=== PATIENT | male | born 1970 | race Hispanic/Latino ===

== ENCOUNTER 2016-03-11 14:29 | Emergency (ER) | payer OTHER ==
--- NOTE | 2016-03-11 17:19 | Emergency Department Report ---
Chief Complaint: Pain General Stated Complaint: BONE PAIN Time Seen by Provider: 03/11/16 17:09 - HPI History of Present Illness: 45-year-old male presents today stating he needs radiation for his bone cancer. Patient states he was diagnosed with lung cancer 5 years ago and his last radiation was 3 years ago. Patient states he follows up with Dr. Austin Roldan who works at this hospital. Denies visual or auditory hallucinations. Denies suicidal or homicidal ideations. Per caregiver patient is resident of [facility] and is to be sent back there after discharge. Patient is delusional and does not have history of bone cancer. - ROS Review of Systems: Per HPI - Exam Vital Signs: Vital Signs 03/11/16 14:50 Temperature 98.5 F Pulse Rate 117 H Respiratory 20 Rate Blood Pressure 110/72 O2 Sat by Pulse 98 Oximetry Physical Exam: General: A 44-year-old male in no acute distress. Well-developed, well- nourished. CV: Regular rate and rhythm. Lungs: Clear to auscultation bilaterally. MSE screening note: Focused history and physical exam performed. Due to findings the following was ordered: ED Disposition for MSE Condition: Stable
[2016-03-11 17:46] LABS: Basophils % (Auto) 0.2 % (0.0-1.8); Eosinophils % (Auto) 0.4 % (0.0-4.3); Hematocrit 42.6 % (35.5-45.6); Hemoglobin 13.9 gm/dl (11.8-15.2); Mean Corpuscular HGB Conc 33 % (32-34); Mean Corpuscular Hemoglobin 27 pg (28-32); Mean Corpuscular Volume 83 fl (84-94); Platelet Count 138 K/mm3 (140-440); Red Blood Count 5.13 M/mm3 (3.65-5.03); Red Cell Distribution Width 13.6 % (13.2-15.2); White Blood Count 4.9 K/mm3 (4.5-11.0)
[2016-03-11 18:03] LABS: Anion Gap 19 mmol/L; Blood Urea Nitrogen 12 mg/dL (9-20); Calcium 9.1 mg/dL (8.4-10.2); Carbon Dioxide 24 mmol/L (22-30); Chloride 101.5 mmol/L (98-107); Glucose 120 mg/dL (75-100); Potassium 4.2 mmol/L (3.6-5.0); Sodium 140 mmol/L (137-145)
[2016-03-12] MEDS ORDERED: TORADOL IM ONE (03:08)
[2016-03-12 03:09] VITALS: BP 103/63
--- NOTE | 2016-03-12 03:26 | Emergency Department Report ---
HPI - General Chief Complaint: Pain General Time Seen by Provider: 03/11/16 17:09 - HPI HPI: This is a 45-year-old male who presents to the emergency department with the complaint that he has right-sided body pain that has been going on for years but worsened since this afternoon. He says he has a history of radiation therapy and that he is here because he would like more radiation done. He says he follows up with a physician, Dr. Austin Roldan, for these symptoms. Patient presents from a [facility]. He has a history of schizophrenia. Patient says he is able to ambulate but sometimes does so with pain. I spoke with Seth Vasquez, a caregiver from the shelter, who says that this patient has a history of making these complaints and calling 911. Caregiver says that he does so in the hopes that he will be able to elope and travel to [facility]. There is no history of any type of bone cancer, radiation therapy. The patient was able to get to a phone, which she is usually not allowed to do, and called EMS to bring him to the hospital. ED Past Medical Hx - Past Medical History Hx Psychiatric Treatment: Yes Additional medical history: History of paranoid schizophrenia - Surgical History Additional Surgical History: unknown - Social History Smoking Status: Never Smoker Substance Use Type: None - Medications Home Medications: Home Medications Medication Instructions Recorded Confirmed Last Taken Type No Known Home Medications [No 03/26/13 04/18/13 Unknown History Reported Home Medications] ED Review of Systems ROS: Stated complaint: BONE PAIN Other details as noted in HPI Comment: All other systems reviewed and negative Constitutional: denies: chills, fever Eyes: denies: eye pain, eye discharge, vision change ENT: denies: ear pain, throat pain Respiratory: denies: cough, shortness of breath, wheezing Cardiovascular: denies: chest pain, palpitations Gastrointestinal: denies: abdominal pain, nausea, diarrhea Genitourinary: denies: urgency, dysuria Musculoskeletal: arthralgia, myalgia Skin: denies: rash, lesions Neurological: denies: headache, weakness, paresthesias Physical Exam - Physical Exam Vital Signs: Vital Signs 03/11/16 03/12/16 03/12/16 14:50 01:33 03:08 Temperature 98.5 F 98.4 F Pulse Rate 117 H 102 H 92 H Respiratory 20 18 18 Rate Blood Pressure 110/72 115/77 Blood Pressure 103/63 [Left] O2 Sat by Pulse 98 95 96 Oximetry Physical Exam: GENERAL: The patient is well-developed well-nourished. HEENT: Normocephalic. Atraumatic. Extraocular motions are intact. Patient has moist mucous membranes. Pupils equal reactive to light bilaterally. NECK: Supple. Trachea is midline. CHEST/LUNGS: Clear to auscultation. There is no respiratory distress noted. HEART/CARDIOVASCULAR: Regular. There is no tachycardia. There is no gallop rub or murmur. ABDOMEN: Abdomen is soft, nontender. Patient has normal bowel sounds. There is no abdominal distention. SKIN: Warm and dry NEURO: The patient is awake, alert, and oriented. The patient is cooperative. The patient has no focal neurologic deficits. The patient has normal speech. MUSCULOSKELETAL: There is no tenderness or deformity. There is no limitation range of motion. There is no evidence of acute injury. Muscle strength 5 out of 5 upper and lower Chev[place] bilaterally. ED Course Vital Signs 03/11/16 03/12/16 03/12/16 14:50 01:33 03:08 Temperature 98.5 F 98.4 F Pulse Rate 117 H 102 H 92 H Respiratory 20 18 18 Rate Blood Pressure 110/72 115/77 Blood Pressure 103/63 [Left] O2 Sat by Pulse 98 95 96 Oximetry ED Medical Decision Making - Lab Data Result diagrams: 03/11/16 17:26 03/11/16 17:26 - Medical Decision Making This is a 45-year-old male with history of schizophrenia and some delusions who claims that he needs more radiation therapy for bone pain from possible bone cancer in the past. Patient does not appear to have any discomfort with palpation of his entire right side of his body. Otherwise he has normal sounding heart and lungs to auscultation. Vital signs stable including being afebrile. He had some mild tachycardia when he first got here many hours ago but it has greatly improved without intervention. Patient was given a shot of Toradol for his complaint of discomfort. I spoke with the caregiver who says that there is a history of schizophrenia and delusions and he does not have any bone issues or radiation therapy. Patient will be discharged back to the care of the shelter and encouraged to follow-up with a primary care physician. He will be returned to the emergency department with any acute distress. Critical Care Time: No Critical care attestation.: If time is entered above; I have spent that time in minutes in the direct care of this critically ill patient, excluding procedure time. ED Disposition Clinical Impression: Body aches, Musculoskeletal pain Disposition: DISCHARGED TO HOME OR SELFCARE Is pt being admited?: No Does the pt Need Aspirin: No Condition: Good Instructions: Musculoskeletal Pain (ED) Additional Instructions: Please follow-up with your primary care doctor in the next few days. Return to the emergency department with any acute distress. Referrals: PRIMARY CAREMD [Primary Care Provider] - 3-5 Days Time of Disposition: 03:27
== END 2016-03-12 04:30 | disposition home or self-care (01) ==
LOC: ED 14:29
DX: M79.1 Myalgia (principal); F20.9 Schizophrenia, unspecified
CPT/HCPCS: 36415; 80048; 85025; 99283; G0480; J1885; 80320

== ENCOUNTER 2016-06-12 13:59 | Emergency (ER) | payer OTHER ==
[2016-06-12 15:03] VITALS: BP 129/82
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
[2016-06-12] MEDS ORDERED: MOTRIN PO ONE (17:19)
--- NOTE | 2016-06-12 17:48 | Emergency Department Report ---
Entered by KENNY MAYERS, acting as scribe for ASHA COLMENARES PA. ED General Adult HPI - General Chief complaint: Pain General Stated complaint: BODY PAIN Time Seen by Provider: 06/12/16 15:10 Source: patient Mode of arrival: Ambulatory Limitations: No Limitations - History of Present Illness Initial comments: 45 year old male with a PMHx of schizophrenia presents to the ED c/o myalgias that began 5 weeks ago. Rates pain a 5/10 in severity and describes the pain as aching in quality. Associated symptoms include bilateral ankle pain, right leg pain, and right arm pain, but he denies numbness, tingling, chest pain, abdominal pain, fever, chills, and SOB. Denies any injury or previous Hx of similar symptoms. Patient requests an X-ray of his entire body. NKDA. GARCIA Complaint: Myalgias Onset/Timin -: week(s) Location: upper extremity (right arm), lower extremity (bilateral ankles and right leg) Radiation: non-radiation Severity scale (0 -10): 5 Quality: aching Consistency: constant Improves with: none Worsens with: none Associated Symptoms: denies other symptoms. denies: chest pain, cough, fever/ chills, headaches, nausea/vomiting, rash, shortness of breath, weakness, other ( numbness and tingling) - Related Data Previous Rx's Medication Instructions Recorded Last Taken Type Ibuprofen [Motrin] 800 mg PO Q8HR PRN #30 tablet 06/12/16 Unknown Rx Allergies Allergy/AdvReac Type Severity Reaction Status Date / Time No Known Allergies Allergy Verified 04/13/13 01:46 ED Review of Systems Comment: All other systems reviewed and negative Constitutional: denies: chills, fever, weakness, other (tingling) Respiratory: denies: cough, orthopnea, shortness of breath, SOB with exertion, SOB at rest, stridor Cardiovascular: denies: chest pain, dyspnea on exertion, orthopnea Gastrointestinal: denies: abdominal pain, nausea, vomiting Musculoskeletal: myalgia (bilateral ankles, right leg, and right arm). denies: back pain Skin: denies: rash Neurological: denies: headache, numbness ED Past Medical Hx - Past Medical History Hx Psychiatric Treatment: Yes Additional medical history: History of paranoid schizophrenia - Surgical History Additional Surgical History: unknown - Social History Smoking Status: Never Smoker Substance Use Type: None - Medications Home Medications: Home Medications Medication Instructions Recorded Confirmed Last Taken Type Ibuprofen [Motrin] 800 mg PO Q8HR PRN #30 tablet 06/12/16 Unknown Rx ED Physical Exam - General Limitations: No Limitations General appearance: alert, in no apparent distress - Head Head exam: Present: atraumatic, normocephalic - Eye Eye exam: Present: normal appearance, EOMI Pupils: Present: normal accommodation - ENT ENT exam: Present: normal exam, mucous membranes moist - Neck Neck exam: Present: normal inspection, full ROM - Respiratory Respiratory exam: Present: normal lung sounds bilaterally. Absent: respiratory distress, wheezes, rales, rhonchi, stridor - Cardiovascular Cardiovascular Exam: Present: regular rate, normal rhythm. Absent: systolic murmur, diastolic murmur, rubs, gallop - GI/Abdominal GI/Abdominal exam: Present: soft. Absent: distended, tenderness - Extremities Exam Extremities exam: Present: normal inspection, full ROM, tenderness (right leg tenderness), normal capillary refill - Back Exam Back exam: Present: normal inspection, full ROM - Neurological Exam Neurological exam: Present: alert, oriented X3 - Psychiatric Psychiatric exam: Present: normal affect, normal mood - Skin Skin exam: Present: warm, dry, intact. Absent: rash, ecchymosis ED Course Vital Signs 06/12/16 14:57 Temperature 97.8 F Pulse Rate 92 H Respiratory 18 Rate Blood Pressure 129/82 O2 Sat by Pulse 97 Oximetry ED Medical Decision Making - Medical Decision Making 45-year-old male presents to ED with chronic knee pain. Knee x-ray ordered. Knee x-ray shows no acute or immediate injury or fractures of dislocations Discussed the patient to follow up with primary care physician. Discussed with patient to follow up with orthopedic application if he needs. Vital signs are normal patient is in no acute or respiratory distress. ED Disposition Clinical Impression: Knee pain, right Qualifiers: Chronicity: chronic Qualified Code(s): M25.561 - Pain in right knee; G89.29 - Other chronic pain Disposition: DISCHARGED TO HOME OR SELFCARE Is pt being admited?: No Does the pt Need Aspirin: No Condition: Stable Instructions: Arthralgia (ED) Prescriptions: Ibuprofen [Motrin] 800 mg PO Q8HR PRN #30 tablet PRN Reason: Pain Referrals: PRIMARY CARE, [Primary Care Provider] - 3-5 Days CHANELL REYES MD [Referring] - 3-5 Days CIERRA JAMES MD [Staff Physician] - 3-5 Days [facility] [Outside] - 3-5 Days Forms: Work/School Release Form(ED) Time of Disposition: 16:13 This documentation as recorded by the TALIB romero JASMINE,accurately reflects the service I personally performed and the decisions made by DEDRA jones OYINLOLA A, PA.
== END 2016-06-12 17:30 | disposition home or self-care (01) ==
LOC: ED 13:59
DX: M25.561 Pain in right knee (principal); G89.29 Other chronic pain; F20.0 Paranoid schizophrenia
CPT/HCPCS: 99283

== ENCOUNTER 2016-06-13 02:02 | Emergency (ER) | payer SELFPAY ==
[2016-06-13] MEDS ORDERED: MOTRIN PO ONE (07:43)
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
[2016-06-13 07:58] VITALS: BP 131/78
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
== END 2016-06-13 09:12 | disposition home or self-care (01) ==
LOC: ED 02:02
DX: R51 Headache (principal)
CPT/HCPCS: 70450; 99283

== ENCOUNTER 2016-07-18 09:01 | Emergency (ER) | payer SELFPAY ==
[2016-07-18 10:07] LABS: Urine Drugs of Abuse Note Disclamer
[2016-07-18 10:17] LABS: Basophils % (Auto) 0.3 % (0.0-1.8); Eosinophils % (Auto) 0.3 % (0.0-4.3); Hematocrit 39.6 % (35.5-45.6); Hemoglobin 12.9 gm/dl (11.8-15.2); Mean Corpuscular HGB Conc 33 % (32-34); Mean Corpuscular Hemoglobin 27 pg (28-32); Mean Corpuscular Volume 84 fl (84-94); Red Blood Count 4.72 M/mm3 (3.65-5.03); Red Cell Distribution Width 13.2 % (13.2-15.2)
[2016-07-18 10:25] LABS: Bilirubin,Urine NEG (Negative); Blood,Urine NEG (Negative); Ketones,Urine NEG (Negative); Leukocyte Esterase,Urine NEG (Negative); Nitrite,Urine NEG (Negative); Protein,Urine <15 mg/dL mg/dL (Negative); RBC,Urine < 1.0 /HPF (0.0-6.0); Urobilinogen,Urine < 2.0 mg/dL (<2.0)
[2016-07-18 10:33] LABS: WBC,Urine < 1.0 /HPF (0.0-6.0)
[2016-07-18 10:42] LABS: BUN/Creatinine Ratio 15.71; Blood Urea Nitrogen 11 mg/dL (9-20); Calcium 8.7 mg/dL (8.4-10.2); Carbon Dioxide 20 mmol/L (22-30); Chloride 97.4 mmol/L (98-107); Glucose 129 mg/dL (75-100); Sodium 134 mmol/L (137-145)
[2016-07-18 10:45] LABS: Anion Gap 21 mmol/L; Potassium 4.6 mmol/L (3.6-5.0)
[2016-07-18] MEDS ORDERED: ATIVAN PO ONE (10:55)
[2016-07-18 11:09] LABS: Platelet Count 101 K/mm3 (140-440)
--- NOTE | 2016-07-18 11:23 | Emergency Department Report ---
ED Psych HPI - General Chief Complaint: Psych Stated Complaint: EVALUATION Time Seen by Provider: 07/18/16 10:55 Source: patient, EMS Mode of arrival: Wheelchair - History of Present Illness MD Complaint: suicidal ideation, feels depressed, altered mental status -: Gradual Associated Psychiatric Symptoms: depression, racing thoughts, auditory hallucinations History of same: Yes Quality: constant Improves With: none Worsens With: none Context: not taking psychiatric Associated Symptoms: denies: confusion, headache, nausea, vomiting, syncope, insomnia - Related Data Home Medications Medication Instructions Recorded Confirmed Last Taken Citalopram [celeXA] 10 mg PO QDAY 06/13/16 06/13/16 06/13/16 Paliperidone [Invega] 9 mg PO QAM 06/13/16 06/13/16 06/13/16 Previous Rx's Medication Instructions Recorded Last Taken Type Ibuprofen [Motrin 600 MG tab] 600 mg PO Q8H PRN 5 Days 06/13/16 Unknown Rx Allergies Allergy/AdvReac Type Severity Reaction Status Date / Time No Known Allergies Allergy Verified 04/13/13 01:46 ED Review of Systems ROS: Stated complaint: EVALUATION Other details as noted in HPI Comment: All other systems reviewed and negative ED Past Medical Hx - Past Medical History Previous Medical History?: Yes Hx Psychiatric Treatment: Yes Additional medical history: History of paranoid schizophrenia - Surgical History Additional Surgical History: unknown - Social History Smoking Status: Never Smoker Substance Use Type: None - Medications Home Medications: Home Medications Medication Instructions Recorded Confirmed Last Taken Type Citalopram [celeXA] 10 mg PO QDAY 06/13/16 06/13/16 06/13/16 History Ibuprofen [Motrin 600 MG tab] 600 mg PO Q8H PRN 5 Days 06/13/16 Unknown Rx Paliperidone [Invega] 9 mg PO QAM 06/13/16 06/13/16 06/13/16 History ED Physical Exam - General Limitations: Altered Mental Status General appearance: alert, in no apparent distress - Head Head exam: Present: atraumatic, normocephalic - Eye Eye exam: Present: normal appearance - ENT ENT exam: Present: normal exam, normal orophraynx, mucous membranes moist - Neck Neck exam: Present: normal inspection - Respiratory Respiratory exam: Present: normal lung sounds bilaterally. Absent: respiratory distress - Cardiovascular Cardiovascular Exam: Present: regular rate, normal rhythm. Absent: systolic murmur, diastolic murmur, rubs, gallop - GI/Abdominal GI/Abdominal exam: Present: soft, normal bowel sounds - Rectal Rectal exam: Present: deferred - Extremities Exam Extremities exam: Present: normal inspection - Back Exam Back exam: Present: normal inspection - Neurological Exam Neurological exam: Present: alert, oriented X3 - Psychiatric Psychiatric exam: Present: depressed, flat affect - Skin Skin exam: Present: warm, dry, intact, normal color. Absent: rash ED Medical Decision Making - Lab Data Result diagrams: 07/18/16 09:52 07/18/16 09:52 - Medical Decision Making patient doing well, calm , assessed by psych and recommended inpatient unit , Critical care attestation.: If time is entered above; I have spent that time in minutes in the direct care of this critically ill patient, excluding procedure time. ED Disposition Clinical Impression: Psychosis Disposition: DC/TX-65 PSY HOSP/PSY UNIT Is pt being admited?: No Does the pt Need Aspirin: No Condition: Good Referrals: PRIMARY CARE, [Primary Care Provider] - 3-5 Days Time of Disposition: 14:31
[2016-07-18] MEDS ORDERED: GEODON PO SCH (18:00)
--- NOTE | 2016-07-18 18:42 | Consultation ---
History of Present Illness - Reason for Consult Consult date: 07/18/16 Reason for consult: psychiatric evaluation - Chief Complaint Chief complaint: "I have bone cancer" 45 year old disheveled white male with a history of SCPT seen in the ER for psychiatric evaluation. Pt sent from [facility] for acting out and hallucinations. EMS states pt locked himself in district manager major accounts sales's office and called 911. Per the record, the patient stated, "I have been stabbed with bad drugs". Per EMS record, pt was hallucinating and kept screaming "someone is on top of me ". Pt is a flight risk per [place]. Pt was combative: screaming/yelling at ED staff. At the time of this interview, pt presented AAOx3, calm and cooperative. Pt states his only problem is getting his medical needs taken care of, which includes bone cancer. Per the mental health automotive designer note, he reports SI are a constant for him, with last thought being 1 week ago. Pt denies plans or prior attempts. Pt denies HI and A/V hallucinations. Although, he is preoccupied on interview and stares as though he is responding to an unknown stimulus. Pt denies substance use/abuse: UDS (-). He reports 1 previous IP hospitilization at [facility], and remembers being started on Latuda. Prior to that he remembers being on Invega. Medications and Allergies Allergies Allergy/AdvReac Type Severity Reaction Status Date / Time No Known Allergies Allergy Verified 04/13/13 01:46 Home Medications Medication Instructions Recorded Confirmed Last Taken Type Citalopram [celeXA] 10 mg PO QDAY 06/13/16 06/13/16 06/13/16 History Ibuprofen [Motrin 600 MG tab] 600 mg PO Q8H PRN 5 Days 06/13/16 Unknown Rx Paliperidone [Invega] 9 mg PO QAM 06/13/16 06/13/16 06/13/16 History Past psychiatric history - Past Medical History Past Medical History: other (unable to obtain due to psychosis) Past Surgical History: Other (unable to obtain due to psychosis) - past Psychiatric treatment and history Psych: Schizophrenia psychiatric treatment history: unable to obtain due to psychosis - Social History Social history: other (lives in a half-way setting per the record, patient states an apartment) Mental Status Exam - Vital signs Last Vital Signs Temp 98 F 07/18/16 13:36 Pulse 72 07/18/16 13:36 Resp 18 07/18/16 14:43 BP 136/72 07/18/16 13:36 Pulse Ox 96 07/18/16 13:36 - Exam Narrative exam: thought process is limited in scope Orientation: time, place, person Affect: flat Mood: calm Thought content: delusions, somatic Perceptions: other (responding to internal stimuli) Speech: paucity Concentration: distractible Motor activity: tense Level of consciousness: alert Sleep Symptoms: Difficulty Falling Asleep Appetite: decreased Interaction: irritable Results Result Diagrams: 07/18/16 09:52 07/18/16 09:52 Abnormal lab results 07/18/16 07/18/16 07/18/16 Range/Units 09:52 09:52 09:55 WBC 4.0 L (4.5-11.0) K/mm3 MCH 27 L (28-32) pg Plt Count 101 L (140-440) K/mm3 [place] % (Auto) 9.2 H (0.0-7.3) % Lymph # 0.7 L (1.2-5.4) K/mm3 Seg Neutrophils % 72.4 H (40.0-70.0) % Sodium 134 L (137-145) mmol/L Chloride 97.4 L (98-107) mmol/L Carbon Dioxide 20 L (22-30) mmol/L Creatinine 0.7 L (0.8-1.5) mg/dL Glucose 129 H (75-100) mg/dL Ur Specific [place] 1.001 L (1.003-1.030) All other labs normal. Assessment and Plan Assessment and plan: Impression: psychosis and potential threat to self or others. Schizophrenia, paranoid type dd: schizoaffective Recommendation: Continue 1013 and transfer to inpatient psychiatric facility Start geodon 40mg qpm with a meal for psychosis (Latuda or Invega, patient's choices of best past med trials, not available)
--- NOTE | 2016-07-19 11:37 | Progress Note ---
Subjective - Reason for Consult Consult date: 07/19/16 Reason for consult: psychosis Mental Status Exam - Vital signs Last Vital Signs Temp 98.1 F 07/19/16 01:00 Pulse 71 07/19/16 01:00 Resp 16 07/19/16 01:00 BP 98/65 07/19/16 01:00 Pulse Ox 98 07/19/16 01:00 Assessment and Plan On examination, patient appears somewhat disorganized and with mild posturing. He has some mild psychomotor retardation examination as well. Patient is unable to provide a little linear, logical and coherent narrative of his presentation to the ER. Patient is suspected of malingering; however, there is no collateral information to suggest that this is going on. At the current time we'll continue to treat him while obtaining further collateral information. He notes that he is here for treatment of cancer in his bones were broken. He was informed that the ER will be addressing this and they have not found anything medically problematic with him. It is unclear if he is currently delusional or not. General Appearance: casually dressed, no acute distress Sensorium/Consciousness: alert and responding to external stimuli; clear Orientation: person, place, time and situation Eye Contact: limited Attitude / Behavior: guarded Psychomotor & Musculoskeletal Activity: WNL Mood: ok Affect: constricted, limited range Speech / Language: fluent, with normal rate/rhythm/tone Thought Processes: Disorganized and nonlinear Thought Content: Possibly experiencing somatic delusions. No SI, no HI Perception: no AVH Insight: limited Judgement: limitied Capacity for ADLs: independent Plan: Increase Geodon to 40 mg every 12 hours with plan of titrating to an effective dose address his psychotic symptoms
[2016-07-19] MEDS: GEODON PO SCH (15:59)
[2016-07-20] MEDS: GEODON PO SCH ×2 (00:30→11:39)
[2016-07-21] MEDS: GEODON PO SCH ×3 (00:30→23:42)
--- NOTE | 2016-07-21 10:01 | Progress Note ---
Subjective - Reason for Consult Consult date: 07/21/16 Reason for consult: Psychiatry Follow-up - Chief Complaint Chief complaint: "How are you" 45 year old disheveled white male with a history of SCPT seen in the ER for psychiatric evaluation. Today patient is calm and cooperative, but delusional during the assessment. He stated having bone cancer for the past 5 years. Per his chart, no evidence of this patient with bone cancer. He denies SI/HI's, AVH' s, and depression symptoms. He denies sleep disturbance, a poor appetite, and hallucinations. Mental Status Exam - Vital signs Last Vital Signs Temp 97.4 F L 07/21/16 08:34 Pulse 72 07/21/16 08:34 Resp 14 07/21/16 08:35 BP 108/68 07/21/16 08:34 Pulse Ox 97 07/21/16 08:34 - Exam Narrative exam: MSE: Appearance: calm, cooperative Behavior: good eye contact Speech: regular rate and tone Mood: "not sure" Affect: congruent to mood Thought Process: tangential Thought Content: denies SI/HI's and AVH's, possibly delusional Motor Activity: ambulatory Cognition: A/Ox3 Insight: limited Judgment: limited Assessment and Plan Impression: Historical Diagnosis Schizophrenia, paranoid type. Today patient is calm and cooperative, but delusional during the assessment. He stated having bone cancer for the past 5 years. Per his chart, no evidence of this patient with bone cancer. He denies SI/HI's and AVH's. Patient is no threat to self or anyone else. Recommendation/Plan: Rescind 1013. Patient can return to his skilled nursing. Continue Geodon 40 mg Q12 hrs with meals.
[2016-07-22 08:27] VITALS: BP 116/75
--- NOTE | 2016-07-22 10:49 | Emergency Department Report ---
Blank Doc - Documentation Documentation: Patient seen and evaluated by psychiatry. 1013 rescinded. Recommend Geodon 40 twice a day with meals..
== END 2016-07-22 11:09 ==
LOC: EEVIPCON 09:01 → ED 09:01
DX: F29 Unspecified psychosis not due to a substance or known physiological condition (principal); F20.0 Paranoid schizophrenia
CPT/HCPCS: 36415; 80048; 80307; 81001; 85025; 99284; G0480; 80320

== ENCOUNTER 2016-08-12 20:54 | Emergency (ER) | payer SELFPAY ==
[2016-08-12 21:50] LABS: Basophils % (Auto) 0.3 % (0.0-1.8); Eosinophils % (Auto) 0.3 % (0.0-4.3); Hematocrit 40.8 % (35.5-45.6); Hemoglobin 13.2 gm/dl (11.8-15.2); Mean Corpuscular HGB Conc 33 % (32-34); Mean Corpuscular Hemoglobin 27 pg (28-32); Mean Corpuscular Volume 84 fl (84-94); Platelet Count 154 K/mm3 (140-440); Red Blood Count 4.89 M/mm3 (3.65-5.03); Red Cell Distribution Width 13.5 % (13.2-15.2); White Blood Count 4.9 K/mm3 (4.5-11.0)
[2016-08-12 22:02] LABS: Anion Gap 18 mmol/L; BUN/Creatinine Ratio 18.57; Blood Urea Nitrogen 13 mg/dL (9-20); Calcium 9.2 mg/dL (8.4-10.2); Carbon Dioxide 25 mmol/L (22-30); Chloride 100.2 mmol/L (98-107); Glucose 130 mg/dL (75-100); Potassium 4.2 mmol/L (3.6-5.0); Sodium 139 mmol/L (137-145)
--- NOTE | 2016-08-13 06:44 | Emergency Department Report ---
HPI - General Chief Complaint: Pain General Time Seen by Provider: 08/13/16 06:17 - HPI HPI: 46-year-old male presents to the emergency department, dropped off by his senior linux systems administrator, with a complaint of right leg pain between the knee and the ankle that has been going on since yesterday. The patient says that he was clumsy and kicked a door and a chair by accident yesterday. He says that he lives alone but has a senior linux systems administrator who checks on him throughout the day secondary to his history of schizophrenia. He complained of this pain to her last night and was brought in to be seen. He did not take anything for his symptoms prior to presentation. When asked if he would like something for discomfort he says "I would rather not." He denies any suicidal ideations, homicidal ideations, hallucinations. He says he is able to ambulate on the affected right leg for "short periods of time." ED Past Medical Hx - Past Medical History Previous Medical History?: Yes Hx Psychiatric Treatment: Yes Additional medical history: History of paranoid schizophrenia - Surgical History Past Surgical History?: Yes Additional Surgical History: unknown - Social History Smoking Status: Never Smoker Substance Use Type: None ED Review of Systems ROS: Stated complaint: MH Other details as noted in HPI Comment: All other systems reviewed and negative Constitutional: denies: chills, fever Eyes: denies: eye pain, eye discharge, vision change ENT: denies: ear pain, throat pain Respiratory: denies: cough, shortness of breath, wheezing Cardiovascular: denies: chest pain, palpitations Gastrointestinal: denies: abdominal pain, nausea, diarrhea Genitourinary: denies: urgency, dysuria Musculoskeletal: arthralgia. denies: back pain, joint swelling Skin: denies: rash, lesions Neurological: denies: headache, weakness, paresthesias Physical Exam - Physical Exam Vital Signs: Vital Signs 08/12/16 08/12/16 08/13/16 20:57 21:13 06:01 Temperature 98.6 F 98.6 F Pulse Rate 109 H 109 H Respiratory 20 20 Rate Blood Pressure 144/100 Blood Pressure [Left] Blood Pressure 144/100 [Right] O2 Sat by Pulse 99 99 97 Oximetry 08/13/16 08/13/16 08/13/16 06:10 06:13 06:20 Temperature 97.6 F Pulse Rate 77 Respiratory 18 Rate Blood Pressure 116/77 116/77 Blood Pressure 116/77 [Left] Blood Pressure [Right] O2 Sat by Pulse 97 98 98 Oximetry Physical Exam: GENERAL: The patient is well-developed well-nourished. HEENT: Normocephalic. Atraumatic. Extraocular motions are intact. Patient has moist mucous membranes. Pupils equal reactive to light bilaterally. NECK: Supple. Trachea is midline. CHEST/LUNGS: Clear to auscultation. There is no respiratory distress noted. HEART/CARDIOVASCULAR: Regular. There is no tachycardia. There is no gallop rub or murmur. ABDOMEN: Abdomen is soft, nontender. Patient has normal bowel sounds. There is no abdominal distention. SKIN: Skin is warm and dry. NEURO: The patient is awake, alert. The patient is cooperative. The patient has no focal neurologic deficits. The patient has normal speech and gait. MUSCULOSKELETAL: There is some tenderness palpation to the right tib-fib but no obvious deformity. There is no limitation range of motion. ED Course Vital Signs 08/12/16 08/12/16 08/13/16 20:57 21:13 06:01 Temperature 98.6 F 98.6 F Pulse Rate 109 H 109 H Respiratory 20 20 Rate Blood Pressure 144/100 Blood Pressure [Left] Blood Pressure 144/100 [Right] O2 Sat by Pulse 99 99 97 Oximetry 08/13/16 08/13/16 08/13/16 06:10 06:13 06:20 Temperature 97.6 F Pulse Rate 77 Respiratory 18 Rate Blood Pressure 116/77 116/77 Blood Pressure 116/77 [Left] Blood Pressure [Right] O2 Sat by Pulse 97 98 98 Oximetry - Reevaluation(s) Reevaluation #1: The patient appears medically cleared from the possible leg fracture that he came in complaining of. X-rays do not show any fracture and the leg does not appear unstable. He will be placed on crutches and given a referral for an orthopedist. However we are having issues with discharge as the patient was dropped off by his "senior linux systems administrator" and the numbers provided to call them say that the phone has been disconnected. The phone number appears to be correct as it was verified by the patient's uncle, who is in [place], and was verified by nurse Thomas. We have tried some other numbers available and have not been able to get in touch with the senior linux systems administrator. The psychosocial rehabilitation counselor, Shashi, is currently working on this case to find a safe and appropriate disposition placement. 08/13/16 09:32 Reevaluation #2: The patient has remained stable throughout his ED course. He has even been seen ambulatory and does not appear to have any instability while doing so and his right lower extremity does not appear to be causing him any discomfort. However we are still having trouble getting in touch with the group longterm or senior linux systems administrator. The psychosocial rehabilitation counselor is currently looking into this case and the patient will remain in the emergency department until we can find the safe disposition 08/13/16 12:45 ED Medical Decision Making - Lab Data Result diagrams: 08/12/16 21:26 08/12/16 21:26 - Radiology Data Radiology results: image reviewed interpreted by me: X-ray of the right tib-fib and femur did not show any fractures, dislocations or any acute process. - Medical Decision Making 46-year-old male with a history of schizophrenia presents the emergency department with complaint of pain to the right leg that occurred after he says he kicked a chair and a door yesterday. There is no obvious deformity the patient complains of discomfort and tenderness to palpation. X-rays are done of the tib-fib and femur and there is no fracture, dislocation or any acute process seen. Patient says that it is hard for him to walk. However later in the ED course the patient was seen ambulatory in the emergency department and did not appear to have any instability or pain while doing so. He will be given some crutches to use just in case however I do feel that his complaints could secondarily be to his psychiatric condition. Nonetheless the patient will also be given a referral for an orthopedist. The patient has been in the emergency department for many hours as we have been unable to get in touch with his senior linux systems administrator at the intermediate for a safe disposition back to the facility. director of employer services was involved and is just now gotten in touch with the senior linux systems administrator who says that we can send him back where she will await his arrival. - Differential Diagnosis fracture, dislocation, contusion, sprain Critical Care Time: No Critical care attestation.: If time is entered above; I have spent that time in minutes in the direct care of this critically ill patient, excluding procedure time. ED Disposition Clinical Impression: Musculoskeletal pain, Right leg pain Disposition: DC-01 TO HOME OR SELFCARE Is pt being admited?: No Condition: Stable Instructions: Arthralgia (ED) Additional Instructions: Please follow-up with your primary care physician in the next few days. Return to the emergency department with any worsening of her symptoms or any acute distress. i have given a referral for a local orthopedist, Dr. Strong, in case he needs to follow-up regarding her leg pain. Referrals: ISIDRO PEARCE MD [Primary Care Provider] - 3-5 Days SHAKA STRONG MD [Staff Physician] - 3-5 Days Time of Disposition: 14:55
--- NOTE | 2016-08-13 07:40 | XRay Report ---
RIGHT TIBIA/FIBULA: History: Right leg pain. AP and lateral views of the right tibia/fibula demonstrate normal mineralization and contours for this patient's age. No destructive changes are noted and the adjacent soft tissues are normal. IMPRESSION: Unremarkable right tibia/fibula.
--- NOTE | 2016-08-13 07:40 | XRay Report ---
RIGHT FEMUR: History: Right leg pain. AP and lateral views of the femur demonstrate normal mineralization and contours for this patient's age. No destructive changes are noted and the adjacent soft tissues are normal. IMPRESSION: Normal right femur.
[2016-08-13 16:15] VITALS: BP 122/81
== END 2016-08-13 16:16 | disposition home or self-care (01) ==
LOC: ED 20:54 → EEVIPCON 20:54 → ED 08-13 16:16
DX: M79.604 Pain in right leg (principal); F20.0 Paranoid schizophrenia
CPT/HCPCS: 36415; 73552; 73590; 80048; 85025; 99284; G0480; 80320

== ENCOUNTER 2016-08-31 19:42 | Emergency (ER) | payer OTHER ==
[2016-08-31] MEDS ORDERED: TYLENOL PO ONE (20:44)
[2016-08-31] MEDS ORDERED: FIORICET PO ONE (20:45)
--- NOTE | 2016-08-31 21:42 | Emergency Department Report ---
ED Headache HPI - General Chief Complaint: Headache Stated Complaint: HEADACHE Time Seen by Provider: 08/31/16 20:05 Source: patient Exam Limitations: no limitations - History of Present Illness Timing/Duration: 1 week Quality: mild Head Injury Location: other Recent Head Trauma: no recent headache/trauma Modifying Factors: improves with: other Associated Symptoms: denies symptoms Allergies/Adverse Reactions: Allergies No Known Allergies Allergy (Verified 04/13/13 01:46) Home Medications: Ambulatory Orders Naproxen [Naprosyn] 375 mg PO BID PRN #14 tablet 08/31/16 ED Review of Systems ROS: Stated complaint: HEADACHE Other details as noted in HPI Comment: All other systems reviewed and negative Constitutional: no symptoms reported Neurological: headache ED Past Medical Hx - Past Medical History Previous Medical History?: Yes Hx Psychiatric Treatment: Yes (Unknown about any other hx) Additional medical history: History of paranoid schizophrenia - Surgical History Past Surgical History?: No Additional Surgical History: unknown - Family History Family history: hypertension - Social History Smoking Status: Never Smoker - Medications Home Medications: Home Medications Medication Instructions Recorded Confirmed Last Taken Type Naproxen [Naprosyn] 375 mg PO BID PRN #14 tablet 08/31/16 Unknown Rx ED Physical Exam - General Limitations: No Limitations General appearance: alert, in no apparent distress - Head Head exam: Present: atraumatic - Eye Eye exam: Present: normal appearance - ENT ENT exam: Present: normal exam - Neck Neck exam: Present: normal inspection - Respiratory Respiratory exam: Present: normal lung sounds bilaterally - Cardiovascular Cardiovascular Exam: Present: regular rate, normal rhythm - GI/Abdominal GI/Abdominal exam: Present: soft - Back Exam Back exam: Present: normal inspection - Neurological Exam Neurological exam: Present: alert, oriented X3 - Psychiatric Psychiatric exam: Present: anxious, other ED Course Vital Signs 08/31/16 20:47 Temperature 98.2 F Pulse Rate 100 H Respiratory 16 Rate Blood Pressure 126/85 Blood Pressure 126/85 [Right] Critical care attestation.: If time is entered above; I have spent that time in minutes in the direct care of this critically ill patient, excluding procedure time. ED Disposition Clinical Impression: Headache Disposition: DC-01 TO HOME OR SELFCARE Is pt being admited?: No Does the pt Need Aspirin: No Condition: Stable Prescriptions: Naproxen [Naprosyn] 375 mg PO BID PRN #14 tablet PRN Reason: Headache Referrals: PRIMARY CARE, [Primary Care Provider] - 3-5 Days
[2016-08-31] MEDS ORDERED: HALDOL IM ONE (22:20)
[2016-09-01 15:37] VITALS: BP 135/84
== END 2016-09-01 15:37 | disposition home or self-care (01) ==
LOC: ED 19:42
DX: R51 Headache (principal)
CPT/HCPCS: 96372; 99283; J1630

== ENCOUNTER 2018-09-06 14:56 | Emergency (ER) | payer SELFPAY ==
--- NOTE | 2018-09-06 15:07 | Emergency Department Report ---
Blank Doc - Documentation Documentation: This is a 48-year-old male that presents with AMS with urinary incontinences. This initial assessment/diagnostic orders/clinical plan/treatment(s) is/are subject to change based on patient's health status, clinical progression and re- assessment by fellow clinical providers in the ED. Further treatment and workup at subsequent clinical providers discretion. Patient/guardians urged not to elope from the ED as their condition may be serious if not clinically assessed and managed. Initial orders include: 1- Patient sent to MAIN ED for further evaluation and treatment 2- labs 3- CT head
[2018-09-06 15:40] LABS: Hematocrit 43.4 % (35.5-45.6); Hemoglobin 13.7 gm/dl (11.8-15.2); Lymphocytes % (Auto) 12.6 % (13.4-35.0); Mean Corpuscular HGB Conc 32 % (32-34); Mean Corpuscular Volume 84 fl (84-94); Monocytes # (Auto) 0.7 K/mm3 (0.0-0.8); Monocytes % (Auto) 8.9 % (0.0-7.3); Platelet Count 167 K/mm3 (140-440); Red Cell Distribution Width 14.6 % (13.2-15.2)
[2018-09-06 15:51] LABS: INR 1.2 (0.87-1.13)
[2018-09-06 15:52] LABS: Partial Thromboplastin Time 30.3 Sec. (24.2-36.6)
[2018-09-06 16:12] LABS: Albumin 4.5 g/dL (3.9-5); Calcium 9.4 mg/dL (8.4-10.2)
--- NOTE | 2018-09-06 16:55 | Cat Scan Report ---
CT of the head without contrast INDICATION: Altered mental status. TECHNIQUE: Routine CT head without contrast. All CT scans at this location are performed using CT dos e reduction for ALARA by means of automated exposure control. COMPARISON: None. FINDINGS: BRAIN / INTRACRANIAL CONTENTS: No acute hemorrhage, mass effect, midline shift, or hydrocephalus. No appreciable acute large territorial or lacunar infarct. No chronic infarct or focal atrophy. Normal b rain volume and ventricular/sulcal size for age. ORBITS: No significant abnormality of visualized orbits. SINUSES / MASTOIDS: No significant abnormality of visualized sinuses and mastoid air cells. ADDITIONAL FINDINGS: None. IMPRESSION: 1. No acute intracranial abnormality. Signer Name: Iain Kerns MD Signed: 09/06/2018 4:50 PM Workstation Name: [employer]
--- NOTE | 2018-09-06 19:36 | Emergency Department Report ---
ED General Adult HPI - General Chief complaint: Altered Mental Status Stated complaint: MEDICAL CLEARANCE Time Seen by Provider: 09/06/18 15:06 Source: patient Mode of arrival: Ambulatory Limitations: No Limitations - History of Present Illness Initial comments: 48-year-old male with history of schizoaffective disorder brought in by a caregiver due to change in mental status over the last 3 months. Caregiver states patient has had multiple psychiatric admissions for his schizoaffective disorder over the last 3 months. Patient's medications have also been adjusted. Now, caregiver states the patient is unable to have normal conversations as he was once able to do. States he used to be able to take an Uber and go places by himself, but now he cannot. States patient used to be oriented, would know day of the week, what month it was, but currently does not. She reports patient has been having urinary and bowel incontinence. Caregiver states he was seen by his psychiatrist and PCP last week. States medications were again adjusted. States this morning, pt fell down the stairs. No LOC. Pt has not reported any pain. He has been ambulating normally. Patient denies pain when I ask. Will not answer any other questions. -: month(s) (3) Consistency: constant Improves with: none Worsens with: none Associated Symptoms: confusion. denies: fever/chills, nausea/vomiting - Related Data Home Medications Medication Instructions Recorded Confirmed Last Taken Loxapine (Nf) [Loxitane Cap (Nf)] 25 mg PO BID 09/01/16 09/01/16 08/31/16 21:00 Loxapine Succinate [Loxapine] 10 mg PO BID 09/01/16 09/01/16 08/31/16 21:00 Previous Rx's Medication Instructions Recorded Last Taken Type Naproxen [Naprosyn TAB] 375 mg PO BID #14 tablet 09/01/16 Unknown Rx Allergies Allergy/AdvReac Type Severity Reaction Status Date / Time No Known Allergies Allergy Verified 09/06/18 14:57 ED Review of Systems ROS: Stated complaint: MEDICAL CLEARANCE Other details as noted in HPI Comment: Unobtainable due to pts medical conditions ED Past Medical Hx - Past Medical History Hx Psychiatric Treatment: Yes (Unknown about any other hx) Additional medical history: History of paranoid schizophrenia - Surgical History Additional Surgical History: unknown - Social History Smoking Status: Never Smoker Substance Use Type: None - Medications Home Medications: Home Medications Medication Instructions Recorded Confirmed Last Taken Type Loxapine (Nf) [Loxitane Cap (Nf)] 25 mg PO BID 09/01/16 09/01/16 08/31/16 21:00 History Loxapine Succinate [Loxapine] 10 mg PO BID 09/01/16 09/01/16 08/31/16 21:00 History Naproxen [Naprosyn TAB] 375 mg PO BID #14 tablet 09/01/16 Unknown Rx ED Physical Exam - General Limitations: No Limitations General appearance: alert, in no apparent distress - Head Head exam: Present: atraumatic, normocephalic - Eye Eye exam: Present: normal appearance, EOMI - ENT ENT exam: Present: mucous membranes moist - Neck Neck exam: Present: normal inspection - Respiratory Respiratory exam: Present: normal lung sounds bilaterally. Absent: respiratory distress - Cardiovascular Cardiovascular Exam: Present: regular rate, normal rhythm - GI/Abdominal GI/Abdominal exam: Present: soft. Absent: distended, tenderness - Extremities Exam Extremities exam: Present: normal inspection - Neurological Exam Neurological exam: Present: alert, other (moves all extremities, answers minimal questioning) - Psychiatric Psychiatric exam: Present: flat affect - Skin Skin exam: Present: warm, dry, intact, normal color ED Course Vital Signs 09/06/18 09/06/18 15:06 20:47 Temperature 97.3 F L 98 F Pulse Rate 105 H 92 H Respiratory 20 18 Rate Blood Pressure 106/57 Blood Pressure 107/75 [Right] O2 Sat by Pulse 99 98 Oximetry ED Medical Decision Making - Lab Data Result diagrams: 09/06/18 15:25 09/06/18 15:25 - Radiology Data Radiology results: report reviewed, image reviewed - Medical Decision Making Workup was unremarkable. Patient's mental status is likely progression of schizoaffective disorder versus effects of medication adjustment due to multiple psychiatric admissions. This is an ongoing 3 months according to the patient's aircraft electrical systems specialist. Television Announcer advised to continue follow-up with the patient's psychiatrist and PCP. Patient is not currently psychotic. Does not meet inpatient criteria at this time. Return precautions given. - Differential Diagnosis infection, intracranila bleed, metabolic abnormality Critical care attestation.: If time is entered above; I have spent that time in minutes in the direct care of this critically ill patient, excluding procedure time. ED Disposition Clinical Impression: Schizoaffective disorder Disposition: DC-01 TO HOME OR SELFCARE Is pt being admited?: No Condition: Stable Instructions: Schizoaffective Disorder (ED) Referrals: MEHRDAD WETZEL MD [Primary Care Provider] - 3-5 Days PRIMARY CAREMD [Referring] - 3-5 Days Time of Disposition: 20:23
[2018-09-06 20:48] VITALS: BP 107/75
== END 2018-09-06 20:47 | disposition home or self-care (01) ==
LOC: ED 14:56
DX: F25.9 Schizoaffective disorder, unspecified (principal)
CPT/HCPCS: 36415; 70450; 80053; 82140; 82962; 85025; 85610; 85730; 87040; 93005; 93010

== ENCOUNTER 2019-03-08 13:26 | Emergency (ER) | payer MEDICARE ==
[2019-03-08 14:14] VITALS: BP 129/87
--- NOTE | 2019-03-08 14:43 | Emergency Department Report ---
HPI - General Chief Complaint: Dyspnea/Respdistress Time Seen by Provider: 03/08/19 14:22 - HPI HPI: 48-year-old male presents to the emergency department via EMS from a psychiatric facility where he is a voluntary admit with the complaint of some midsternal chest pain and shortness of breath that started earlier this afternoon. Patient says that it has improved since he has been sitting here at rest. He came in via EMS but did not receive anything for his symptoms prior to arrival. He has a history of diet-controlled diabetes. Denies any tobacco or illicit drug use. No recent travel or sick contacts at home. He denies any fever, back pain, lower extremity swelling, nausea, vomiting or diaphoresis. ED Past Medical Hx - Past Medical History Previous Medical History?: Yes Hx Hypertension: No Hx CVA: No Hx Heart Attack/AMI: No Hx Congestive Heart Failure: No Hx Diabetes: No Hx Deep Vein Thrombosis: No Hx Pulmonary Embolism: No Hx GERD: No Hx Liver Disease: No Hx Renal Disease: No Hx of Cancer: No Hx Sickle Cell Disease: No Hx Arthritis: No Hx Headaches / Migraines: No Hx Seizures: No Hx Psychiatric Treatment: Yes (Unknown about any other hx) Hx Asthma: No Hx COPD: No Hx Tuberculosis: No Hx Dementia: No Hx HIV: No Additional medical history: History of paranoid schizophrenia - Surgical History Past Surgical History?: Yes Hx Coronary Stent: No Hx Open Heart Surgery: No Hx Pacemaker: No Hx Internal Defibrillator: No Hx Cholecystectomy: No Hx Appendectomy: No Hx Breast Surgery: No Additional Surgical History: unknown - Social History Smoking Status: Never Smoker Substance Use Type: None - Medications Home Medications: Home Medications Medication Instructions Recorded Confirmed Last Taken Type Loxapine (Nf) [Loxitane Cap (Nf)] 25 mg PO BID 09/01/16 09/01/16 08/31/16 21:00 History Loxapine Succinate [Loxapine] 10 mg PO BID 09/01/16 09/01/16 08/31/16 21:00 History Naproxen [Naprosyn TAB] 375 mg PO BID #14 tablet 09/01/16 Unknown Rx ED Review of Systems ROS: Stated complaint: CHEST PAIN/HEATHER Other details as noted in HPI Comment: All other systems reviewed and negative Constitutional: denies: chills, fever Eyes: denies: eye pain, vision change ENT: denies: ear pain, throat pain Respiratory: shortness of breath. denies: cough Cardiovascular: chest pain. denies: palpitations, edema Gastrointestinal: denies: abdominal pain, vomiting Genitourinary: denies: dysuria, discharge Musculoskeletal: denies: back pain, arthralgia Skin: denies: rash, lesions Neurological: denies: headache, weakness Physical Exam - Physical Exam Vital Signs: Vital Signs 03/08/19 03/08/19 14:09 14:29 Temperature 98.5 F Pulse Rate 85 85 Respiratory 12 12 Rate Blood Pressure 129/87 Blood Pressure 129/87 [Right] O2 Sat by Pulse 99 99 Oximetry Physical Exam: GENERAL: The patient is well-developed well-nourished. HEENT: Normocephalic. Atraumatic. Patient has moist mucous membranes. EYES: Extraocular motions are intact. NECK: Supple. Trachea is midline. CHEST/LUNGS: Clear to auscultation. There is no respiratory distress noted. HEART/CARDIOVASCULAR: Regular. There is no tachycardia. There is no murmur. ABDOMEN: Abdomen is soft, nontender. Patient has normal bowel sounds. There is no abdominal distention. SKIN:Skin is warm and dry. . NEURO: The patient is awake, alert, and oriented. The patient is cooperative. The patient has no focal neurologic deficits. Normal speech. MUSCULOSKELETAL: There is no tenderness or deformity. There is no evidence of acute injury. ED Course Vital Signs 03/08/19 03/08/19 14:09 14:29 Temperature 98.5 F Pulse Rate 85 85 Respiratory 12 12 Rate Blood Pressure 129/87 Blood Pressure 129/87 [Right] O2 Sat by Pulse 99 99 Oximetry ED Medical Decision Making - Lab Data Result diagrams: 03/08/19 15:10 03/08/19 15:10 - EKG Data -: EKG Interpreted by Me EKG shows normal: sinus rhythm, axis, intervals, QRS complexes, ST-T waves Rate: normal - EKG Data When compared to previous EKG there are: no significant change Interpretation: unchanged when compared t (09/06/18) - Radiology Data Radiology results: image reviewed interpreted by me: Chest x-ray does not show any pleural effusions, pneumonia, pneumothorax, focal consolidation, or any other acute process. - Medical Decision Making This patient presents with some chest pain that started earlier today with some mild shortness of breath. It appears that his symptoms have already improved upon presentation. EKG did not show any signs of ST elevation MO or dysrhythmia. Patient's labs have been unremarkable including CBC, metabolic panel, troponin and negative d-dimer. A chest x-ray was done that does not show any pleural effusions, pneumonia, pneumothorax, focal consolidation, or any other acute process. The patient refused a second troponin but also says that he is asymptomatic regarding the chest pain and shortness of breath. The patient is awake, alert and oriented but does have a strange demeanor and has some potential delusions. When I asked why the patient refuses the second troponin, he says that a doctor told him that he needs to get evaluated at [facility] instead. However he denies any suicidal or homicidal ideations or any hallucinations. He otherwise is redirectable and answers most questions appr opriately. He was seen by the psychiatric manufacturing engineer automotive who agrees that he does not appear to require a 1013 or involuntary inpatient psychiatric admission. The patient will be discharged back to his alf. His contact information has been sent over to [facility] cardiology who should be contacting him for close outpatient follow-up. He was instructed to return to the emergency department with any return of his chest pain or with any acute distress. - Differential Diagnosis MO, PE, costochondritis, pneumonia Critical Care Time: No Critical care attestation.: If time is entered above; I have spent that time in minutes in the direct care of this critically ill patient, excluding procedure time. ED Disposition Clinical Impression: History of schizophrenia Chest pain Qualifiers: Chest pain type: unspecified Qualified Code(s): R07.9 - Chest pain, unspecified Disposition: DC-01 TO HOME OR SELFCARE Is pt being admited?: No Condition: Stable Instructions: Chest Pain (ED) Additional Instructions: Please follow up with your primary care physician in the next few days. You are free to see any high school learning support teacher that she would like. However I have sent your contact information over to [facility] cardiology and someone should be contacting you shortly for close outpatient follow-up. Please return to the emergency department with any return of your chest pain, worsening of your symptoms, or with any acute distress. Referrals: PRIMARY CARE,MD [Primary Care Provider] - 2-[address] [facility] [Provider Group] - 2-3 Days Time of Disposition: 18:08
--- NOTE | 2019-03-08 15:12 | XRay Report ---
CHEST 1 VIEW INDICATION / CLINICAL INFORMATION: Chest pain. COMPARISON: None available. FINDINGS: SUPPORT DEVICES: None. HEART / MEDIASTINUM: No significant abnormality. LUNGS / PLEURA: No significant pulmonary or pleural abnormality. No pneumothorax. ADDITIONAL FINDINGS: No significant additional findings. IMPRESSION: No evidence of acute cardiopulmonary disease. Signer Name: Arsen Bates MD Signed: 03/08/2019 3:07 PM Workstation Name: [id number]
[2019-03-08 15:20] LABS: Basophils % (Auto) 0.2 % (0.0-1.8); Hematocrit 37.5 % (35.5-45.6); Hemoglobin 12.7 gm/dl (11.8-15.2); Lymphocytes # (Auto) 1.1 K/mm3 (1.2-5.4); Lymphocytes % (Auto) 18.9 % (13.4-35.0); Mean Corpuscular HGB Conc 34 % (32-34); Mean Corpuscular Volume 81 fl (84-94); Monocytes # (Auto) 0.4 K/mm3 (0.0-0.8); Monocytes % (Auto) 7.6 % (0.0-7.3); Platelet Count 156 K/mm3 (140-440); Red Blood Count 4.63 M/mm3 (3.65-5.03); Red Cell Distribution Width 14.2 % (13.2-15.2)
[2019-03-08 15:38] LABS: BUN/Creatinine Ratio 12; Blood Urea Nitrogen 11 mg/dL (9-20); Calcium 9.7 mg/dL (8.4-10.2)
[2019-03-08 15:39] LABS: Alanine Aminotransferase 12 units/L (7-56); Albumin 4.6 g/dL (3.9-5); Hemolysis Index 4
[2019-03-08] MEDS ORDERED: ASPIRIN 81 MG TAB CHEW PO ONE (15:43)
== END 2019-03-08 20:15 | disposition home or self-care (01) ==
LOC: ED 13:26
DX: R07.89 Other chest pain (principal); R06.02 Shortness of breath; F20.9 Schizophrenia, unspecified
CPT/HCPCS: 36415; 71045; 80053; 84484; 85025; 85379; 93005; 93010